=== PATIENT | female | born 1970 | race American Indian/Alaskan Native ===

== ENCOUNTER 2018-05-20 12:02 | Day surgery (SDC) | payer OTHER ==
[2018-05-20] MEDS ORDERED: XYLOCAINE 1% 20 mL ONE (14:31)
--- NOTE | 2018-05-20 15:03 | Short Stay Summary ---
Short Stay Documentation Date of service: 05/20/18 - History Principal diagnosis: bilateral thyroid nodules H&P: obtained from office - Allergies and Medications Current Medications: Allergies No Known Allergies Allergy (Verified 05/20/18 12:19) Home Medications Medication Instructions Recorded Confirmed Last Taken Type Adult One Daily Multivit Tab 1 tab PO DAILY 05/20/18 05/20/18 05/18/18 History 1 tab Cholecalciferol (Vitamin D3) 1,000 units PO DAILY 05/20/18 05/20/18 05/13/18 History [Vitamin D3] 1 tab Nystatin/Triamcin 1 applicatio TRANSDERMA BID 05/20/18 05/20/18 05/17/18 History [Nystatin-Triamcinolone Cream] 1 application [id number] 40-10-25Mg 1 tab PO DAILY 05/20/18 05/20/18 05/18/18 History 1 tab - Physical exam General appearance: no acute distress HEENT: Other (palpable bilateral thyroid masses, right > left) - Brief post op/procedure progress note Date of procedure: 05/20/18 Pre-op diagnosis: thyroid nodules Post-op diagnosis: same Procedure: US thyroid biopsy, right Anesthesia: local Findings: 5.6cm right thyroid mass Surgeon: ROMINA SIDHU Estimated blood loss: none Pathology: list (FNA x 1, rotex biopsy x 1) Specimen disposition: to lab Condition: stable - Disposition Condition at discharge: Good Disposition: [id number] TO HOME OR SELFCARE Short Stay Discharge Plan Follow up with: MARGARET ARROYO MD [Primary Care Provider] - 7 Days
[2018-05-20 15:18] VITALS: BP 149/88
--- NOTE | 2018-05-20 15:29 | Ultrasound Report ---
ULTRASOUND BIOPSY THYROID History: Thyroid nodule Description of procedure: Informed consent was obtained. Sterile technique was utilized. 1% lidocaine for skin anesthesia. Using ultrasound guidance, one fine needle aspiration and one rotex biopsy was obtained from a 5.6 x 3.1 x 4.0 cm solid mass in the mid right thyroid lobe. The samples were deemed adequate by the pathologist on site. No complications. Impression: Successful ultrasound-guided biopsy of a right thyroid lobe mass as described.
== END 2018-05-20 15:50 | disposition home or self-care (01) ==
LOC: CATHLABREC 12:02
PROVIDERS: ATTEND Surgery
DX: E04.1 Nontoxic single thyroid nodule (principal); I10 Essential (primary) hypertension; Z79.899 Other long term (current) drug therapy; Z80.9 Family history of malignant neoplasm, unspecified; Z82.49 Family history of ischemic heart disease and other diseases of the circulatory system
CPT/HCPCS: 60100; 76942; 88112; 88172; 88173; 88305